=== PATIENT | female | born 1955 | race Caucasian/White ===

== ENCOUNTER 2017-02-19 20:33 | Observation (INO) | payer BC ==
[~2017-02-19] VITALS: Ht 153.7 cm; Wt 55.1 kg
[~2017-02-19 20:33] MED LIST: ASPIRIN81 M1 PO; ATORVASTATIN 40 MG T PO; ATORVASTATIN CA40 MG PO; CALCIO DEL MAR500 MG PO; CALCIUM 600 MG1 EACH PO; ESSENTIAL ONE1 EACH PO; LEVOTHYROXINE25 MCG PO; LIPITOR PO; PROVERA,CYCRIN10 MG PO; VAGIFEM10 MCG VG
[2017-02-19 21:29] LABS: MCHC 32.5 G/DL (30.0-36.0); MCV 95.5 FL (83-99); MEAN PLAT.VOLUME 10.6 uM^3 (9.5-12.4); PLATELET COUNT 248 K/uL (156-360); RBC DIS.WIDTH-SD 41.8 % (39-53); RED BLOOD COUNT 4.19 M/uL (3.80-5.20); WHITE BLOOD COUNT 6.5 K/uL (4.1-10.2)
[2017-02-19 21:41] LABS: CHLORIDE 107 mEq/L (99-109); POTASSIUM 3.9 mEq/L (3.7-5.4); SODIUM 142 mEq/L (136-147)
[2017-02-19 21:43] LABS: GLUCOSE 96 mg/dL (70-99)
[2017-02-19 21:44] LABS: ANION GAP 8 MEQ/L (2-14)
[2017-02-19 21:46] LABS: GFR ESTIMATE (CALCULATED) 54 mL/min/
[2017-02-19 21:47] LABS: UREA NITROGEN (BUN) 21 mg/dL (9-23)
[2017-02-19 21:51] LABS: TROP-I INTERPRETATION NEGATIVE; TROPONIN-I < 0.01 ng/mL (0.0-0.30)
[2017-02-19] MEDS ORDERED: ONE-A-DAY ESSE1 EAC1 PO (23:00)
[2017-02-19] MEDS ORDERED: LO-DOSE ASPIRIN81 M2 PO (23:00)
[2017-02-19] MEDS ORDERED: ADVIL,NUPRIN,M200 MG PO (23:00)
[2017-02-20 01:00] VITALS: BP 112/58
[2017-02-20 04:14] LABS: TROP-I INTERPRETATION NEGATIVE; TROPONIN-I < 0.01 ng/mL (0.0-0.30)
[2017-02-20 04:30] VITALS: BP 100/46
[2017-02-20 04:40] LABS: HDL CHOLESTEROL 40 MG/DL (Desirable>=50); LDL CHOLESTEROL 60 mg/dL (Desirable<100); NON-HDL CHOLESTEROL 91 mg/dL (Desirable<160); TOTAL CHOLESTEROL 131 mg/dL (Desirable<200); TRIGLYCERIDES 154 MG/DL (Normal: <150)
[2017-02-20 08:58] VITALS: BP 127/75
[2017-02-20 11:03] LABS: TROP-I INTERPRETATION NEGATIVE; TROPONIN-I < 0.01 ng/mL (0.0-0.30)
== END 2017-02-20 11:57 | disposition home or self-care (01) ==
LOC: EME 20:33 → EDOF 22:54 → 5WEST 02-20 00:28
PROVIDERS: Physician Assistant Medical
DX: R07.9 Chest pain, unspecified (principal); M79.602 Pain in left arm; R06.02 Shortness of breath; R42 Dizziness and giddiness; R11.0 Nausea; F41.0 Panic disorder [episodic paroxysmal anxiety]; F41.1 Generalized anxiety disorder; E03.9 Hypothyroidism, unspecified; E78.5 Hyperlipidemia, unspecified
CPT/HCPCS: 71020; 80048; 80061; 84484; 85027; 93005; 99281; 99285; G0378; J1650

== ENCOUNTER → 2017-07-13 | Outpatient (CLI) | payer BC ==
[~2017-07-13] VITALS: Ht 152.4 cm; Wt 57.0 kg
[~2017-07-13] MED LIST changes: +ADVIL,NUPRIN,M200 MG PO; +LO-DOSE ASPIRIN81 M2 PO; +ONE-A-DAY ESSE1 EAC1 PO; +PROGESTERONE100 MG PO
[2017-07-13 15:36] VITALS: BP 129/69
== END | disposition home or self-care (01) ==
LOC: IVINF 15:26
DX: M81.0 Age-related osteoporosis without current pathological fracture (principal)
CPT/HCPCS: 96365; J3489